=== PATIENT | male | born 1965 | race Caucasian/White ===

== ENCOUNTER 2018-05-07 09:23 | Emergency (ER) | payer SELFPAY ==
[~2018-05-07 09:23] MED LIST: BP MED; CEFU250S6 PO; HCTZ25 PO; IBUP-1618 PO; INDO-23 PO; LOR5/325 PO; MUCINEX; NOR5/325 PO; OXA600 PO; OXYC-865 PO; OXYC20TA86 PO; PER PO; PRED-1 PO; THERAFLU; VERA200C8 PO
--- NOTE | 2018-05-07 09:31 | ER Report ---
History and Physical Time Seen By MD: 09:31 HPI/ROS CHIEF COMPLAINT: Right knee pain and swelling HISTORY OF PRESENT ILLNESS: Patient is a 52-year-old male here with complaints of right knee pain and swelling after striking the knee on a step proximal he 3 days ago. Patient reports having a history of gout prior fractures of the femur and tib-fib on that side. Patient reports having worsening pain since time of onset. Denies lower extremity paresthesias. REVIEW OF SYSTEMS: Constitutional: No fever, no chills. Eyes: No discharge. ENT: No sore throat. Cardiovascular: No chest pain, no palpitations. Respiratory: No cough, no shortness of breath. Gastrointestinal: No abdominal pain, no vomiting. Genitourinary: No hematuria. Musculoskeletal: + right knee pain with ROM and swelling Skin: No rashes. Neurological: NV exam is intact distal to injury site Allergies: Coded Allergies: No Known Drug Allergies (Unverified , 05/07/18) Home Meds Active Scripts Oxycodone Hcl/Acetaminophen (PERCOCET 5-325 MG TABLET) 1 Each Tablet, 1 EACH PO Q4H PRN for PAIN, #12 TAB 0 Refills Prov:YOEL ARIAS DO 05/07/18 Reported Medications Ibuprofen (IBUPROFEN) 800 Mg Tablet, 1 TAB PO Q8H, TAB 05/07/18 Ibuprofen (IBUPROFEN) 200 Mg Tablet, 2 TAB PO Q6H, TAB 05/07/18 Discontinued Scripts Oxycodone Hcl/Acetaminophen (PERCOCET 5-325 MG TABLET) 1 Each Tablet, 1 EACH PO Q4-6H PRN for PAIN, #12 TAB Prov:RADHA TROY 01/22/17 Hx Smoking: Yes (34 daily) Smoking Status: Current: Every Day Smoker Hx Substance Use Disorder: No Hx Alcohol Use: Yes (QUIT 3 WEEKS AGO) Constitutional Vital Sign - Last 24 Hours 05/07/18 09:33 Temp 98.5 Pulse 70 Resp 16 B/P (MAP) 146/91 Pulse Ox 94 O2 Delivery Room Air Physical Exam General Appearance: The patient is alert, has no immediate need for airway protection and no signs of toxicity. NAD Neurological: No focal deficits Skin: Warm and dry, no rashes. Musculoskeletal: + right knee swelling and pain with ROM testing DIFFERENTIAL DIAGNOSIS: After history and physical exam differential diagnosis was considered for gout, pseudogout, septic arthritis, hemarthrosis, sprain, fracture Medical Decision Making EKG/Imaging Imaging Exam type: KNEE 3 VIEW RIGHT History: fall, edema Comparison: May 16, 2010. Findings: Again noted are old postsurgical changes of the right knee from prior ACL repair and three screws transfixing an old proximal right fibular fracture. An intramedullary kedar is also identified in the right tibia although is incompletely imaged. Of the proximal screw appears to been fractured there are severe degenerative changes now seen involving the patellofemoral joint. Modera te degenerative changes involving the medial and lateral compartment again noted with multiple loose bodies within the joint spaces.. No evidence of acute fracture or dislocation seen IMPRESSION: 1. Extensive postoperative changes of the right knee and extensive degenerative changes as described above although no gross evidence of acute fracture or dislocation seen ED Course/Re-evaluation ED Course Patient is a 52-year-old male here with complaints of right knee pain status post injury to the knee and concern for a gout flare. A joint aspiration was performed evacuating approximately 70 mL of gross blood was aspirated making a hemarthrosis likely culprit of the patient's joint effusion and pain. Patient significant relief of symptoms post aspiration. José Miguel wrap was applied and patient was given analgesia for outpatient treatment and an José Miguel wrap. Patient was advised to return promptly if you develop worsening pain, fevers, inability to bear weight. Procedure Right knee site was cleaned using chlorhexidine scrub, lateral aspect of the knee was infiltrated with 1% lidocaine with epinephrine approximately 4 mL. An 18-gauge needle was used to evacuate proximally 70 mL of gross blood from the joint space with significant decrease in pain and improvement of range of motion. Hemostasis was achieved. José Miguel wrap as applied to the site. NV intact distal to the site. Decision to Disposition Date: May 07, 2018 Decision to Disposition Time: 11:15 Depart Departure Latest Vital Signs Vital Signs Date Time Temp Pulse Resp B/P (MAP) Pulse Ox O2 Delivery O2 Flow Rate FiO2 05/07/18 09:33 98.5 70 16 146/91 94 Room Air Impression: Primary Impression: Hemarthrosis Condition: Improved Disposition: HOME OR SELF-CARE New Scripts Oxycodone Hcl/Acetaminophen (PERCOCET 5-325 MG TABLET) 1 Each Tablet 1 EACH PO Q4H PRN for PAIN, #12 TAB 0 Refills Prov: YOEL ARIAS DO 05/07/18 Departure Forms: ER Transition Record, Medications Reconciliation, Off Work/School Form, School or Work Release?: Work Number of days to be released: 3 Patient Portal Information Patient Instructions: Hemarthrosis (ED) Additional Instructions: You were diagnosed with blood in the joint space of her right knee. Please rest, ice, elevate as needed for pain control. You may take percocet as needed for pain control. Please return promptly if she develop worsening pain, fevers, inability to bear weight on the leg. Please follow-up with your family doctor or orthopedics YOEL ARIAS DO May 07, 2018 09:31
[2018-05-07] MEDS ORDERED: IBUP800T37 PO (09:32)
[2018-05-07] MEDS ORDERED: IBUP-56 PO (09:32)
[2018-05-07 09:33] VITALS: BP 146/91
[2018-05-07] MEDS ORDERED: traMADol 50 MG TAB PO ONE (09:55)
--- NOTE | 2018-05-07 10:32 | RADIOLOGY IMAGING REPORT ---
FACILITY: [facility] - [place] PATIENT NAME: Joel Albarran : 1965 MR: [id number] V: [id number] EXAM DATE: ORDERING PHYSICIAN: YOEL ARIAS TECHNOLOGIST: Location[place] [facility] [place] Patient: Joel Albarran : 1965 Visit/Account:[id number] Date of Sevice: 05/07/2018 Exam type: KNEE 3 VIEW RIGHT History: fall, edema Comparison: May 16, 2010. Findings: Again noted are old postsurgical changes of the right knee from prior ACL repair and three screws tra nsfixing an old proximal right fibular fracture. An intramedullary kedar is also identified in the rig ht tibia although is incompletely imaged. Of the proximal screw appears to been fractured there are severe degenerative changes now seen involving the patellofemoral joint. Moderate degenerative garcia es involving the medial and lateral compartment again noted with multiple loose bodies within the alejandra nt spaces.. No evidence of acute fracture or dislocation seen IMPRESSION: 1. Extensive postoperative changes of the right knee and extensive degenerative changes as described above although no gross evidence of acute fracture or dislocation seen Report Dictated By: Madonna Mccrary MD at 05/07/2018 10:23 AM Report E-Signed By: Madonna Mccrary MD at 05/07/2018 10:27 AM LEXXN:DEN
[2018-05-07] MEDS ORDERED: OXYC-865 PO (11:19)
== END 2018-05-07 11:30 | disposition home or self-care (01) ==
LOC: ER 09:39
DX: M25.061 Hemarthrosis, right knee (principal)
CPT/HCPCS: 99283

== ENCOUNTER 2018-09-15 21:39 | Emergency (ER) | payer OTHER ==
[~2018-09-15 21:39] MED LIST changes: +IBUP-56 PO; +IBUP800T37 PO
[2018-09-15 21:46] VITALS: BP 155/100
--- NOTE | 2018-09-15 21:46 | ER Report ---
History and Physical Time Seen By MD: 21:46 HPI/ROS CHIEF COMPLAINT: Left 2nd digit lateral laceration 3.5 cm HISTORY OF PRESENT ILLNESS: Patient is a 52-year-old male who reportedly cut his finger caught in the rocks at work causing a 3.5 cm laceration. Patient is neurovascularly intact at time of evaluation. Tetanus is not up-to-date. Patient has good capillary refill distal to the laceration site. There is no bony deformity identified on physical examination. REVIEW OF SYSTEMS: Constitutional: No fever, no chills. Musculoskeletal: Left 2nd digit TENDERNESS on examination with macerated tissue Skin: 3.5 cm vertical laceration to the left 2nd digit Neurological: Neurovascular exam intact Allergies: Coded Allergies: No Known Drug Allergies (Unverified , 09/15/18) Home Meds Discontinued Reported Medications Ibuprofen (IBUPROFEN) 800 Mg Tablet, 1 TAB PO Q8H, TAB 05/07/18 Ibuprofen (IBUPROFEN) 200 Mg Tablet, 2 TAB PO Q6H, TAB 05/07/18 Discontinued Scripts Oxycodone Hcl/Acetaminophen (PERCOCET 5-325 MG TABLET) 1 Each Tablet, 1 EACH PO Q4H PRN for PAIN, #12 TAB 0 Refills Prov:YOEL ARIAS DO 05/07/18 Hx Smoking: Yes (34 daily) Smoking Status: Current: Every Day Smoker Hx Substance Use Disorder: No Hx Alcohol Use: Yes (QUIT 3 WEEKS AGO) Constitutional Vital Sign - Last 24 Hours 09/15/18 09/15/18 09/15/18 09/15/18 21:44 21:44 21:46 21:54 Temp 98.5 Pulse 62 Resp 18 B/P (MAP) 155/100 155/126 (136) 155/100 (118) Pulse Ox 92 92 09/15/18 09/15/18 09/15/18 22:09 22:24 22:39 Pulse 59 66 61 Pulse Ox 95 97 93 Physical Exam General Appearance: The patient is alert, has no immediate need for airway protection and no signs of toxicity. No acute distress Neurological: Neurovascular exam intact distal to the injury site Skin: 3.5 cm laceration with macerated edges present on the left 2nd digit Musculoskeletal: Tenderness mild edema at the injury site DIFFERENTIAL DIAGNOSIS: After history and physical exam differential diagnosis was considered for fracture, laceration, contusion Medical Decision Making EKG/Imaging Imaging PATIENT NAME: Joel Albarran : 1965 MR: [id number] V: [id number] EXAM DATE: ORDERING PHYSICIAN: YOEL ARIAS TECHNOLOGIST: Location: [facility] Patient: Joel Albarran : 1965 Visit/Account:[id number] Date of Sevice: 09/15/2018 EXAMINATION: Three views of the left index finger. HISTORY: Laceration. COMPARISON: None. FINDINGS: Bones of the left second digit demonstrate normal alignment. No evidence of fracture or dislocation. Soft tissues are radiographically unremarkable. No radiopaque foreign body. IMPRESSION: Negative finger series. ED Course/Re-evaluation ED Course Patient is a 52-year-old male here status post trauma to the left 2nd digit with 3.5 cm laceration. Neurovascular exam was intact. 5 4-0 Ethilon sutures are used to close the laceration after a digital ring block was performed. Patient tolerated procedure well. Recommend removal in 7-10 days. Return precautions provided. Procedure Laceration repair. A digital ring block was performed using 1% lidocaine without epinephrine of the base of the 2nd left digit. 5 x 4-0 Ethilon sutures were used to approximate the wound margins. 7-10 day removal recommended. Patient tolerated procedure well. Decision to Disposition Date: Sep 15, 2018 Decision to Disposition Time: 22:38 Depart Departure Latest Vital Signs Vital Signs Date Time Temp Pulse Resp B/P (MAP) Pulse Ox O2 Delivery O2 Flow Rate FiO2 09/15/18 22:39 61 93 09/15/18 21:46 155/100 (118) 09/15/18 21:44 98.5 18 Impression: Primary Impression: Finger laceration Condition: Improved Disposition: HOME OR SELF-CARE New Scripts No Active Prescriptions or Reported Meds Patient Instructions: Finger Laceration (ED) Additional Instructions: 5 sutures were used to close your laceration today. Please have the sutures removed in 7-10 days. Please keep the site clean and monitor for signs of infection. Your tetanus was updated today. Please follow-up with your family doctor in one week for reevaluation. YOEL ARIAS DO Sep 15, 2018 21:46
[2018-09-15] MEDS ORDERED: DIPHTH/TETANUS/ACEL. PERTUSSIS IM ONLY ONE (21:50)
--- NOTE | 2018-09-15 22:22 | RADIOLOGY IMAGING REPORT ---
FACILITY: [facility] PATIENT NAME: Joel Albarran : 1965 MR: [id number] V: [id number] EXAM DATE: ORDERING PHYSICIAN: YOEL ARIAS TECHNOLOGIST: Location: [facility] Patient: Joel Albarran : 1965 Visit/Account:[id number] Date of Sevice: 09/15/2018 EXAMINATION: Three views of the left index finger. HISTORY: Laceration. COMPARISON: None. FINDINGS: Bones of the left second digit demonstrate normal alignment. No evidence of fracture or dislocation. Soft tissues are radiographically unremarkable. No radiopaque foreign body. IMPRESSION: Negative finger series. Report Dictated By: Donald Arce MD at 09/15/2018 10:17 PM Report E-Signed By: Donald Arce MD at 09/15/2018 10:18 PM WSN:[id number]
== END 2018-09-15 22:53 | disposition home or self-care (01) ==
LOC: ER 21:57
DX: S61.211A Laceration without foreign body of left index finger without damage to nail, initial encounter (principal); W45.8XXA Other foreign body or object entering through skin, initial encounter; Y99.0 Civilian activity done for income or pay
CPT/HCPCS: 90471; 90715; 99282